=== PATIENT | male | born 1980 | race Caucasian/White ===

== ENCOUNTER 2017-10-07 13:29 | Emergency (ER) | payer OTHER ==
[~2017-10-07] VITALS: Ht 177.8 cm; Wt 90.0 kg
[2017-10-07 14:51] LABS: URINE BILIRUBIN - DIPSTICK NEGATIVE (NEGATIVE); URINE BLOOD DIPSTICK MODERATE (NEGATIVE); URINE COLOR YELLOW; URINE GLUCOSE - DIPSTICK NEGATIVE (NEGATIVE); URINE KETONE NEGATIVE (NEGATIVE); URINE NITRITE - DIPSTICK NEGATIVE (Negative); URINE PROTEIN - DIPSTICK NEGATIVE (NEG-TRACE); URINE UROBILINOGEN - DIPSTICK 0.2 E.U./dL (0.2)
[2017-10-07 14:53] LABS: URINE CLARITY CLEAR; URINE LEUK ESTERASE SMALL (NEGATIVE)
[2017-10-07] MEDS ORDERED: SEPTRA4001 PO (15:07)
[2017-10-07] MEDS ORDERED: PYRIDIUM200 MG PO (15:07)
[2017-10-07 15:10] VITALS: BP 114/68
== END 2017-10-07 15:10 | disposition home or self-care (01) | DRG 690 ==
LOC: ED 13:29
PROVIDERS: Emergency Medicine
DX: N39.0 Urinary tract infection, site not specified (principal); B96.20 Unspecified Escherichia coli [E. coli] as the cause of diseases classified elsewhere; K21.9 Gastro-esophageal reflux disease without esophagitis

== ENCOUNTER 2021-11-28 10:00 | Emergency (ER) | payer MEDICAID ==
[~2021-11-28] VITALS: Ht 177.8 cm; Wt 79.5 kg
[~2021-11-28 10:00] MED LIST: PYRIDIUM200 MG PO; SEPTRA4001 PO
[2021-11-28] MEDS ORDERED: PREDNISONE50 MG PO (10:27)
[2021-11-28] MEDS ORDERED: AMOX/K CLAV875 M1 PO (10:27)
[2021-11-28] MEDS ORDERED: ZPAK PO (10:27)
[2021-11-28 10:46] VITALS: BP 120/72
== END 2021-11-28 10:54 | disposition home or self-care (01) ==
LOC: ED 10:00
DX: J06.9 Acute upper respiratory infection, unspecified (principal); K21.9 Gastro-esophageal reflux disease without esophagitis; Z20.822 Contact with and (suspected) exposure to COVID-19